=== PATIENT | female | born 1970 | race Caucasian/White ===

== ENCOUNTER 2016-07-26 06:37 | Day surgery (SDC) | payer OTHER ==
[2016-07-26] MEDS ORDERED: MIDAZOLAM 2 MG/2 ML INJ ONE (06:58)
[2016-07-26] MEDS ORDERED: PROPOFOL INJ 200 MG/20 ML VIAL IV ONE (06:59)
[2016-07-26] MEDS ORDERED: DEXMEDETOMIDINE INJ 80 MCG/20 ML VIAL IV ONE (06:59)
[2016-07-26] MEDS ORDERED: LIDOCAINE 2% INJ-PF (20 MG/ML) 10 ML AMPUL ONE (06:59)
[2016-07-26] MEDS ORDERED: EPHEDRINE SULFATE INJ 50 MG/1 ML AMPULE ONE (06:59)
[2016-07-26] MEDS ORDERED: ONDANSETRON HCL INJ/PF 4 MG/2 ML SDV ONE (06:59)
[2016-07-26] MEDS ORDERED: GLYCOPYRROLATE INJ 0.4 MG/2 ML VIAL ONE (07:00)
[2016-07-26] MEDS ORDERED: NEOSTIGMINE METHYLSULFATE 10 MG/10 ML VIAL ONE (07:00)
[2016-07-26] MEDS ORDERED: FENTANYL CITRATE INJ/PF 250 MCG/5 ML AMPULE ONE (07:00)
[2016-07-26] MEDS ORDERED: ROCURONIUM BROMIDE INJ 50 MG/5 ML VIAL IV ONE ×2 (07:01)
[2016-07-26] MEDS ORDERED: SUCCINYLCHOLINE CHLORIDE INJ 200 MG/10 ML VIAL ONE (07:01)
[2016-07-26] MEDS ORDERED: ACETAMINOPHEN 100 ML IV ONE (07:16)
[2016-07-26] MEDS ORDERED: DEXAMETHASONE SOD PHOS INJ 10 MG/1 ML VIAL ONE (07:16)
[2016-07-26] MEDS ORDERED: METOCLOPRAMIDE HCL INJ/PF 10 MG/2 ML SDV ONE (07:16)
[2016-07-26] MEDS ORDERED: LIDOCAINE 1%/EPINEPHRINE INJ 20 ML VIAL ONE (07:19)
[2016-07-26] MEDS ORDERED: OXYMETAZOLINE HCL 0.05% NASAL SPRAY 15 ML BOTTLE ONE (07:19)
[2016-07-26] MEDS ORDERED: NORMAL SALINE INJ/PF 0.9% 10 ML SDV ONE (07:50)
[2016-07-26] MEDS ORDERED: EPINEPHRINE INJ 30 MG/30 ML VIAL ONE (07:50)
[2016-07-26] MEDS ORDERED: EPINEPHRINE INJ/PF 1 MG/1 ML AMPULE ONE (07:50)
--- NOTE | 2016-07-26 09:18 | SURGICARE OPERATIVE REPORT E ---
[facility] NAME: LAVINIA ZEPEDA AGE: 45Y DATE OF SURGERY: 07/26/2016 ROOM: PREOPERATIVE DIAGNOSIS: NASAL OBSTRUCTION, DEVIATED SEPTUM. POSTOPERATIVE DIAGNOSIS: NASAL OBSTRUCTION, DEVIATED SEPTUM. OPERATION: Septoplasty, inferior turbinate reduction. SURGEON: ROSE OSCAR M.D. ANESTHESIA: MD. INDICATIONS: A 45-year-old female with a long history of nasal obstruction - difficulty breathing through the nose. She has had multiple sinus infections due to nasal obstruction. She is taken to the operating room for septoplasty. Preoperative examination shows a deviated septum, small nostrils present with inferior turbinate hypertrophy. Risks and benefits of these procedures discussed and accepted preoperatively. OPERATIVE PROCEDURE: Under general anesthesia by orotracheal tube, patient placed in slight reverse Trendelenburg position, prepped and draped for nasal surgery. Nose infiltrated with 1% Xylocaine with 1:100,000 epinephrine solution for a total of 8 mL. Preop Afrin packs were removed from the nose. A left hemitransfixion incision was made and a left mucoperichondrial flap elevated. Junction between the perpendicular-plate of the ethmoid and quadrangular cartilage was divided, and a right posterior tunnel was created. The deformity involved the anterior portion of the ethmoid. This was resected in piece-meal fashion with the open Kalen-Arpan forceps. Further trimming was required along the maxillary crest. Further trimming was created posteriorly and a large spur was removed off the maxillary crest posteriorly. Following these maneuvers, the septum lay in good midline position with correction of the deformity. The mucoperichondrial flaps were then reapproximated and held in position with 3-0 Chromic catgut mattress suture utilizing a quilting technique. The hemitransfixion incision was closed with interrupted 4-0 Vicryl. Next, Monterroso airway splints placed on each side of the septum and held in position with 2-0 Prolene. An inferior turbinate reduction was then performed. The Freddy elevator was utilized and fracture of the inferior turbinates performed. The patient tolerated the entire procedure well and was discharged to the recovery room area in satisfactory condition. TOTAL BLOOD LOSS: Less than 5 mL for the procedure. DICTATING PHYSICIAN: ROSE OSCAR M.D. [id number] PHY#: [id number] ID: [id number] JOB#: [id number] ACCT: [id number] cc:ROSE OSCAR M.D. > ALY
== END 2016-07-26 09:53 | disposition home or self-care (01) ==
LOC: SC 06:37
PROVIDERS: ATTEND Otolaryngology
PROC: 09TL8ZZ Resection of Nasal Turbinate, Via Natural or Artificial Opening Endoscopic (ICD-10-PCS; 2016-07-26)
PROC: 09BM4ZZ Excision of Nasal Septum, Percutaneous Endoscopic Approach (ICD-10-PCS; principal; 2016-07-26 07:30)
DX: J34.2 Deviated nasal septum (principal); J34.89 Other specified disorders of nose and nasal sinuses; J32.0 Chronic maxillary sinusitis; J34.3 Hypertrophy of nasal turbinates; E78.5 Hyperlipidemia, unspecified; I47.1 Supraventricular tachycardia; Z88.5 Allergy status to narcotic agent; Z88.2 Allergy status to sulfonamides; Z79.899 Other long term (current) drug therapy
CPT/HCPCS: 30520; 30140; J2250; J3490 ×6; J3010; J2765; J0330; J2405; J2704; J1100; J0131; 160; J0171